=== PATIENT | female | born 2000 | race Caucasian/White ===

== ENCOUNTER → 2023-11-30 15:33 | Outpatient (CLI) | payer OTHER, SELFPAY ==
--- NOTE | 2023-11-30 | DI.US.S_ITS ---
PROCEDURE: US THYROID INDICATIONS: RIGHT THYROID NODULE TECHNIQUE: Real-time scanning was performed of the thyroid gland, with image documentation. COMPARISON: None. FINDINGS: Thyroid: Right lobe measures 5.5 x 1.1 x 1.8 cm. Left lobe measures 5.0 x 1.2 x 1.7 cm. Isthmus is 0.4 cm thick. Echotexture is homogeneous. Nodule number: 1 Location: Right mid thyroid Size: 0.8 x 0.7 x 0.9 cm. Composition: Solid Echogenicity: Hypoechoic Shape: wider than tall. Margins: Smooth Echogenic foci: None Total points: 4 ACR TI-RADS category: Moderately suspicious IMPRESSION: Single 0.8 cm moderately suspicious right thyroid nodule, which does not meet imaging criteria to require dedicated imaging follow-up. Guidelines provided below. ACR TI-RADS definitions and recommendations: TI-RADS 1 (benign): 0 points. FNA not needed. TI-RADS 2 (not suspicious): 2 points. FNA not needed. TI-RADS 3 (mildly suspicious): 3 points. * FNA if 2.5 cm or larger, follow up if 1.5 cm or larger (at 1, 3, and 5 years). TI-RADS 4 (moderately suspicious): 4-6 points. * FNA if 1.5 cm or larger, follow up if 1 cm or larger (at 1, 2, 3, and 5 years). TI-RADS 5 (highly suspicious): 7 points or more. * FNA if 1 cm or larger, follow up if 0.5 cm or larger (every year for 5 years). Approved by: Hector Kelly M.D. on 11/30/2023 at 20:50
== END ==
PROVIDERS: Referring Provider Internal Medicine; Visit Provider Internal Medicine
DX: E04.1 Nontoxic single thyroid nodule (principal)
CPT/HCPCS: 76536